=== PATIENT | male | born 1970 | race Two or more races ===

== ENCOUNTER 2018-10-26 03:18 | Emergency (ER) | payer SELFPAY ==
[~2018-10-26] VITALS: Ht 172.7 cm; Wt 72.6 kg
--- NOTE | 2018-10-26 03:20 | NUR ---
[id number] FOR UNKNOWN OVERDOSE, POSSIBLY HEROIN. GIVEN NARCAN 2MG IV CONVEYANCER. AOX2. BS 114. HOOKED TO CRUTCHER HELPER, KEPT RESTED AND COMFORTABLE, WILL CONTINUE TO MONITOR.
--- NOTE | 2018-10-26 03:26 | NUR ---
SEEN AND EXAMINED BY DR. CARPENTER
--- NOTE | 2018-10-26 03:40 | NUR ---
ER PHLEB AT BEDSIDE FOR BLOOD DRAW.
--- NOTE | 2018-10-26 03:45 | NUR ---
URINE SPECIMEN COLLECTED AND SENT TO LAB.
[2018-10-26 03:50] LABS: BASOPHILS # (AUTO) 0.1 /CMM (0.0-0.2); BASOPHILS % (AUTO) 1.2 % (0.0-2.0); HEMATOCRIT 33 % (39-51); HEMOGLOBIN 10.4 g/dL (13.5-17.5); LYMPHOCYTES # (AUTO) 2.1 /CMM (0.8-4.8); LYMPHOCYTES % (AUTO) 26.5 % (20.0-44.0); MEAN CORPUSCULAR HGB CONC 32 g/dl (31.0-36.0); MEAN CORPUSCULAR VOLUME 65 fL (80-96); MONOCYTES # (AUTO) 0.7 /CMM (0.1-1.30); MONOCYTES % (AUTO) 8.4 % (2.0-12.0); NEUTROPHILS # (AUTO) 4.9 /CMM (1.8-8.9); NEUTROPHILS % (AUTO) 60.9 % (43.0-81.0); PLATELET COUNT (AUTO) 176 /CMM (150-450); WHITE BLOOD COUNT (AUTO) 8.1 K/uL (4.3-11.0)
--- NOTE | 2018-10-26 03:53 | NUR ---
GRADER PATROL AT BEDSIDE FOR XRAY.
[2018-10-26 03:58] LABS: ALANINE AMINOTRANSFERASE 24 U/L (12-78); ALBUMIN 3.2 g/dL (3.4-5.0); ALKALINE PHOSPHATASE 86 U/L (46-116); ASPARTATE AMINOTRANSFERASE 27 U/L (15-37); BILIRUBIN,DIRECT 0.1 mg/dL (0.0-0.2); BILIRUBIN,TOTAL 0.4 mg/dL (0.2-1.0); CALCIUM, SERUM 7.3 mg/dL (8.5-10.1); CARBON DIOXIDE 23 mmol/L (21-32); CHLORIDE 110 mmol/L (98-107); GLUCOSE 158 mg/dL (74-106); POTASSIUM 3.2 mmol/L (3.5-5.1); SODIUM SERUM 144 mmol/L (136-145); TOTAL PROTEIN, SERUM 6.5 g/dL (6.4-8.2); UREA NITROGEN, BLOOD 22 mg/dL (7-18)
[2018-10-26 04:00] LABS: ALCOHOL, BLOOD < 3 mg/dL (0-0)
[2018-10-26 04:38] LABS: LYMPHOCYTES % (MANUAL) 20 % (16-48); MONOCYTES % (MANUAL) 8 % (0-11.0); NEUTROPHILS % (MANUAL) 72 (42-76)
--- NOTE | 2018-10-26 05:54 | NUR ---
PT ASLEEP ON BED EASILY AROUSABLE, V/S STABLE, WILL CONTINUE TO MONITOR.
--- NOTE | 2018-10-26 07:20 | NUR ---
report received from karlo schneider rn for karthik, pt in bed asleep, easily arousable by voice, tucked in blanket. hooked to monitor, kept safe, warm and comfortable. will continue to monitor accordingly
--- NOTE | 2018-10-26 09:00 | NUR ---
PT AWAKE, AMBULATORY W STEADY GAIT.
--- NOTE | 2018-10-26 09:16 | NUR ---
IV removed. Catheter intact and site benign. Pressure and 4x4 applied to site. No bleeding noted.Patient discharged to home in stable condition. Written and verbal after care instructions given. Patient verbalizes understanding of instruction. Pt's belongings not found in emergency room, assisted to admissions dept to contact RA to ask for belongings
[2018-10-26 09:34] VITALS: BP 117/80
== END 2018-10-26 09:48 | disposition home or self-care (01) ==
LOC: ER 03:20
DX: T40.1X1A Poisoning by heroin, accidental (unintentional), initial encounter (principal); F15.10 Other stimulant abuse, uncomplicated; Z60.2 Problems related to living alone; Y92.89 Other specified places as the place of occurrence of the external cause
CPT/HCPCS: 36415; 71045-TC; 80048-TC; 80076-TC; 80305; 85025-TC; G0480